=== PATIENT | female | born 1930 | race Caucasian/White ===

== ENCOUNTER 2017-11-03 16:13 | Emergency (ER) | payer OTHER ==
[~2017-11-03] VITALS: Ht 162.6 cm; Wt 66.8 kg
[2017-11-03] MEDS ORDERED: NORCO 5/3251 TABLET PO (20:45)
[2017-11-03 20:57] VITALS: BP 120/77
== END 2017-11-03 20:59 | disposition home or self-care (01) ==
LOC: EME 16:13
DX: M54.5 Low back pain (principal); S32.009D Unspecified fracture of unspecified lumbar vertebra, subsequent encounter for fracture with routine healing; I10 Essential (primary) hypertension; J44.9 Chronic obstructive pulmonary disease, unspecified; Z79.82 Long term (current) use of aspirin
CPT/HCPCS: 74020; 99281; 99285

== ENCOUNTER 2017-11-25 13:04 | Inpatient (IN) | payer OTHER ==
[~2017-11-25] VITALS: Ht 162.6 cm; Wt 67.2 kg
[~2017-11-25 13:04] MED LIST: NORCO 5/3251 TABLET PO
[2017-11-25] MEDS ORDERED: SPIRIVA1 INHALATI IH (16:26)
[2017-11-25] MEDS ORDERED: RESTASIS MULTI5.5 ML BOTH EYES (16:26)
[2017-11-25] MEDS ORDERED: FLONASE16 G1 BOTH NARES (16:26)
[2017-11-25] MEDS ORDERED: ESCITALOPRAM OX10 MG PO (16:26)
[2017-11-25] MEDS ORDERED: HYDROCODON-ACE1 EAC7 PO (16:27)
[2017-11-25] MEDS ORDERED: LEVOTHYROXINE125 MCG PO (16:27)
[2017-11-25 17:11] LABS: HEMATOCRIT 39.7 % (36.0-46.0); HEMOGLOBIN 13.3 G/DL (11.9-15.5); MCH 33.2 PG (29.0-34.0); MCHC 33.5 G/DL (30.0-36.0); PLATELET COUNT 278 K/uL (156-360); RBC DIS.WIDTH-SD 51.4 % (39-53); RED BLOOD COUNT 4.01 M/uL (3.80-5.20); WHITE BLOOD COUNT 6.6 K/uL (4.1-10.2)
[2017-11-25 17:19] LABS: CHLORIDE 101 mEq/L (99-109); POTASSIUM 3.6 mEq/L (3.7-5.4); SODIUM 135 mEq/L (136-147)
[2017-11-25 17:20] LABS: GLUCOSE 121 mg/dL (70-99)
[2017-11-25 17:24] LABS: CREATININE 0.8 mg/dL (0.6-1.3); GFR ESTIMATE (CALCULATED) > 59 mL/min/
[2017-11-25 17:25] LABS: UREA NITROGEN (BUN) 14 mg/dL (9-23)
[2017-11-25 20:25] VITALS: BP 149/86
[2017-11-25 23:25] VITALS: BP 143/75
[2017-11-26 06:06] LABS: HEMATOCRIT 38.2 % (36.0-46.0); HEMOGLOBIN 12.6 G/DL (11.9-15.5); MCH 32.7 PG (29.0-34.0); MCV 99.2 FL (83-99); PLATELET COUNT 254 K/uL (156-360); RBC DIS.WIDTH-CV 14.1 % (11.8-14.6); RBC DIS.WIDTH-SD 51.8 % (39-53); RED BLOOD COUNT 3.85 M/uL (3.80-5.20); WHITE BLOOD COUNT 5.6 K/uL (4.1-10.2)
[2017-11-26 06:52] LABS: CHLORIDE 106 MEQ/L (99-109); CREATININE 0.7 MG/DL (0.6-1.3); GFR ESTIMATE (CALCULATED) > 59 mL/min/; GLUCOSE 92 mg/dL (70-99); UREA NITROGEN (BUN) 13 mg/dL (9-23)
[2017-11-26 06:53] LABS: SODIUM 142 MEQ/L (136-147)
[2017-11-26 07:13] VITALS: BP 141/75
[2017-11-26 08:32] LABS: THYROTROPIN (TSH) 3.8 MIU/L (0.4-5.5)
[2017-11-26 15:28] VITALS: BP 120/74
[2017-11-27 00:13] VITALS: BP 142/70
[2017-11-27 07:44] VITALS: BP 165/86
[2017-11-27 16:39] VITALS: BP 110/64
[2017-11-28 00:39] VITALS: BP 117/60
[2017-11-28 08:02] VITALS: BP 148/78
[2017-11-28 16:17] VITALS: BP 130/81
[2017-11-28 19:33] VITALS: BP 170/70
[2017-11-28 23:46] VITALS: BP 114/65
[2017-11-28 23:51] VITALS: BP 146/66
[2017-11-29 07:32] VITALS: BP 132/66
[2017-11-29 15:32] VITALS: BP 154/85
[2017-11-30 00:19] VITALS: BP 142/83
[2017-11-30 06:57] LABS: CHLORIDE 103 MEQ/L (99-109); CREATININE 0.6 MG/DL (0.6-1.3); GFR ESTIMATE (CALCULATED) > 59 mL/min/; GLUCOSE 129 mg/dL (70-99); SODIUM 139 MEQ/L (136-147); UREA NITROGEN (BUN) 10 mg/dL (9-23)
[2017-11-30 07:28] VITALS: BP 131/84
[2017-11-30] MEDS ORDERED: ASPIR-LOW81 MG PO (13:11)
[2017-11-30] MEDS ORDERED: DOCUSATE SODIU100 MG PO (13:12)
[2017-11-30] MEDS ORDERED: SENNA LAX8.6 MG PO (13:13)
[2017-11-30] MEDS ORDERED: BISAC-EVAC10 MG PR (13:13)
[2017-11-30] MEDS ORDERED: OXYCODONE HCL5 MG PO (13:19)
[2017-11-30] MEDS ORDERED: HYDROCODON-ACE1 EAC7 PO (13:19)
== END 2017-11-30 16:08 | DRG 543 ==
LOC: EME 13:04 → EDOF 18:22 → 5EAST 18:22 → ENRESERV 18:32 → 5EAST 19:56
PROVIDERS: Hospitalist; Nurse Practitioner Family
DX: M48.56XA Collapsed vertebra, not elsewhere classified, lumbar region, initial encounter for fracture (principal); F33.9 Major depressive disorder, recurrent, unspecified; K59.03 Drug induced constipation; M54.9 Dorsalgia, unspecified; E03.9 Hypothyroidism, unspecified; I10 Essential (primary) hypertension; I25.10 Atherosclerotic heart disease of native coronary artery without angina pectoris; M47.816 Spondylosis without myelopathy or radiculopathy, lumbar region; M48.061 Spinal stenosis, lumbar region without neurogenic claudication; J44.9 Chronic obstructive pulmonary disease, unspecified; G89.29 Other chronic pain; R26.2 Difficulty in walking, not elsewhere classified; M47.896 Other spondylosis, lumbar region; Z90.710 Acquired absence of both cervix and uterus; Z82.49 Family history of ischemic heart disease and other diseases of the circulatory system
CPT/HCPCS: 74000; 80048; 81003; 84443; 85027; 94640; 94640 76; 97530 GP; 99281; 99284; J1170; J1650; J3010